=== PATIENT | male | born 1960 | race Caucasian/White ===

== ENCOUNTER 2016-03-28 08:00 | Outpatient (RCR) | payer BC ==
[~2016-03-28 08:00] MED LIST: ACIPHEX; ALLEGRA180 MG PO; TOPROL XL25 MG PO; ZYRTEC5 MG PO
== END 2016-06-05 14:08 | disposition home or self-care (01) ==
LOC: MKS.ESL.PT 08:00
DX: M54.5 Low back pain (principal)
CPT/HCPCS: G0283-GP